=== PATIENT | female | born 1965 | race Caucasian/White ===

== ENCOUNTER 2025-08-24 14:29 | Emergency (ER) | payer OTHER, SELFPAY ==
[2025-08-24 14:41] VITALS: BP 210/91
[2025-08-24 15:08] LABS: Hematocrit 36.6 % (37.0-47.0); Hemoglobin 12.1 g/dL (12.0-16.0); Mean Corp Hgb Conc. 33.1 g/dL (33.0-37.0); Mean Corpuscular Volume 82.1 fL (81.0-99.0); Nucleated Red Blood Cells % 0 %; Platelet Count 264 10^3/uL (130-400); Red Cell Dist. Width 14.5 % (11.5-14.5)
[2025-08-24 15:21] LABS: ALT (SGPT) 11 U/L (0-35); AST (SGOT) 19 U/L (14-36); Albumin 4.3 g/dl (3.5-5.0); Alkaline Phosphatase 103 U/L (38-126); Blood Urea Nitrogen 14 mg/dl (7-17); Calcium 9.4 mg/dl (8.4-10.2); Carbon Dioxide 26 mmol/L (22-30); Chloride 104 mmol/L (98-107); Glucose 89 mg/dl (70-99); Potassium 4.2 mmol/L (3.5-5.1); Sodium 136 mmol/L (135-145); Total Protein 6.9 g/dl (6.3-8.2); eGFR > 60.00
[2025-08-24 18:00] VITALS: BP 159/75
--- NOTE | 2025-08-24 18:19 | ED.GENMED ---
History of Present Illness
General
Chief Complaint: Blood Pressure Problem
Source: patient and family
Exam Limitations: none
Time Seen by Provider: 08/24/25 17:19
Nursing documentation reviewed up to this point in time: agreed with
History of Present Illness
History of Present Illness:
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 On multiple occasions, her systolic blood pressure was greater than 200. However, patient denies any
symptoms associated with high blood pressure, i.e. headache/dizziness/chest pain/shortness of breath/nausea/weakness. Patient does report having had high blood pressure which needed to be treated with blood pressure medication 3 years ago.
However, as her blood pressure improved, it was discontinued after short period of time. Denies recent illness. Denies recent travel. Denies recent change in diet. Patient currently does not take any blood pressure medications.
Past History
Past History
ED Past Medical History: None
ED Past Surgical History: Gynecological (Tubal ligation)
Social History
Tobacco: Non-smoker
Living: with family
Employment: Employed (Teacher)
Review of Systems
Review of Systems
Allergies reviewed?: Yes
All Other Systems: ROS reviewed and negative except as documented in HPI and ROS
Constitutional: Reports no symptoms; Denies fever
Respiratory: Reports no symptoms; Denies trouble breathing
Cardiac: Reports no symptoms; Denies chest pain
ABD/GI: Reports no symptoms; Denies vomiting or diarrhea
Musculoskeletal: Reports no symptoms
Skin: Reports no symptoms
Neurological: Reports no symptoms; Denies dizzy, headache, weakness or numbness
Phy Exam
Physical Exam
Physical Exam:
Physical Exam
General: no apparent distress, not acutely ill. afebrile
Head: nc/at. eomi
Neck: supple. no meningeal signs.
Heart: s1/s2 regular rate and rhythm
Lungs: no acute respiratory distress. clear bilaterally
Abdomen: normal bowel sounds. not tender.
Neuro: alert and oriented x 3. no focal neurological deficits
Skin: no rash
Psychiatric: well kept. interactive and cooperative
Extremities: no edema. no calf tenderness.
Course
Orders/Labs/Results
Orders:
Orders
08/24/25 14:56
Complete Blood Count/With Diff Urgent
Comprehensive Metabolic Panel Urgent
TSH Reflex To Free T4 Urgent
Comment: ADD ON
08/24/25 19:02
Add On- LAB Urgent
Tests Added?: TSH to reflex free T4
Abnormal Lab Results
08/24/25
14:56
Hct 36.6 L %
(37.0-47.0)
Lymphocytes % 19.3 L %
(20.5-51.1)
08/24/25 14:56
08/24/25 14:56
Vital Signs
Initial and Last Documented VS:
Initial Vital Signs
Temp Pulse Resp BP Pulse Ox
98.2 F 72 16 210/91 99
08/24/25 14:41 08/24/25 14:41 08/24/25 14:41 08/24/25 14:41 08/24/25 14:41
Last Documented Vital Signs
Temp Pulse Resp BP Pulse Ox
98.2 F 72 16 159/75 99
08/24/25 14:41 08/24/25 14:41 08/24/25 14:41 08/24/25 18:00 08/24/25 18:19
MDM/Problems Addressed
MDM/Problems Addressed:
Blood pressure with spontaneous improvement during observation. Fortunately, patient remains asymptomatic during observation. After discussion with patient and family, decision made to discharge patient home with prescription for low-dose of
lisinopril, which she had taken in the past. Patient will keep daily log of her blood pressure and we will follow-up with her primary care visit for reevaluation in 1 to 2 weeks.
*Pulse Oximetry
SaO2: 99
Oxygen Mode of Delivery: Room air
Patient hypoxic: no
*Critical Care Note
Total Time (30-74mins, 75-104mins- exclusive of procedures): Not Applicable
ED Attending Note
-
Portions of this chart may have been created with voice recognition software.� Occasional wrong word or��sound alike� substitutions may have occurred due to the inherent limitations of voice recognition software.
Discharge Plan
Departure
Patient Disposition: Home (Routine Discharge)
Date of Disposition: 08/24/25
Time of Disposition: 18:19
Patient with high blood pressure during this ER visit?: Yes
Condition: Good
Discharge Problem:
Hypertension
Instructions: High Blood Pressure (DC)
Prescriptions:
New
lisinopril 2.5 mg tablet
2.5 mg PO DAILY Qty: 20 0RF
No Action
No Meds [No Current Medications]
0
medroxyprogesterone 10 MG tablet
10 mg PO TID Qty: 21 0RF
Referrals:
Anel Marr CRNP [Family Provider]
Activity Restrictions/Additional Instructions:
As discussed, please follow-up with your primary care physician for reevaluation in 1 to 2 weeks. Until then, recommend taking prescribed medication along with keeping daily log of your blood pressure.
Interventions
Interventions:
*Risk Screen - Suicide Last Done: 08/24/25 14:41
*General Assessment Last Done: 08/24/25 14:41
*Neglect/Abuse Screening Last Done: 08/24/25 14:41
*Nursing Disposition Last Done: 08/24/25 18:26
ED- Cardiac Assessment Last Done: 08/24/25 18:25
ED- Neurological Assessment Last Done: 08/24/25 18:25
ED- Pulmonary Assessment Last Done: 08/24/25 18:25
Discharge Date and Time
Discharge Date/Time: 08/24/25 18:27
Print Language: [id number]
== END 2025-08-24 18:27 | disposition home or self-care (01) ==
LOC: EMR 14:29
PROVIDERS: Emergency Medicine; EMERGENCY PHYSICIAN Emergency Medicine; FAMILY PHYSICIAN Family Medicine
DX: I10 Essential (primary) hypertension (principal)
CPT/HCPCS: 99283; 80053; 84443; 85025